=== PATIENT | female | born 1965 | race Caucasian/White ===

== ENCOUNTER → 2017-01-14 18:16 | Outpatient (CLI) | payer MEDICAID ==
[~2017-01-14 18:16] MED LIST: AMITRIPTYLINE100 MG PO; BACTRIM 400-801 TAB PO; CATAPRES0.1 MG PO; FLORAJEN3 CAPS460 MG PO; GEMFIBROZIL600 MG PO; KLONOPIN1 MG PO; LEVAQUIN750 MG PO; NAPROSYN500 MG PO; NICODERM C1 PATCH .1 TRANSDERM; NORVASC10 MG PO; PREDNISONE10 MG PO; PREDNISONE20 MG PO; PROAIR HFA8.5 GM INH; SINGULAIR10 MG PO; TESSALON PERLE100 MG PO; ZANTAC150 MG PO
== END | disposition home or self-care (01) ==
LOC: D.MAMMO 13:30
DX: Z12.31 Encounter for screening mammogram for malignant neoplasm of breast (principal)

== ENCOUNTER → 2017-03-25 11:48 | Outpatient (CLI) | payer MEDICAID ==
[2017-03-25 12:15] LABS: BASOPHILS 0.4 % (0-2); HEMATOCRIT 47.8 % (36.0-48.0); HEMOGLOBIN 16.1 g/dL (12-16); IMMATURE GRANULOCYTES 0.2 % (0-5); LYMPHOCYTES 21.7 % (15-50); MCH 33.5 pg (26.0-34.0); MCHC 33.7 g/dL (31.0-37.0); MCV 99.4 fL (80.0-100.0); MEAN PLATELET VOLUME 8.8 fL (7.4-10.4); MONOCYTES 4.8 % (2-11); NEUTROPHILS 71.9 % (40-80); PLATELET COUNT 239 10x3/uL (130-400); RBC 4.81 10x6/uL (4.00-5.40); RDW 13.2 % (11.5-14.5); WBC 9.8 10x3/uL (4.8-10.8)
[2017-03-25 12:28] LABS: ANION GAP 10.7 mmol/L (8-16); CALCIUM 9.8 mg/dL (8.5-10.1); CARBON DIOXIDE 30.4 mmol/L (21.0-32.0); CREATININE - SERUM 0.9 mg/dL (0.6-1.3); POTASSIUM - SERUM 4.1 mmol/L (3.5-5.1)
== END | disposition home or self-care (01) ==
LOC: D.LAB 11:48
PROVIDERS: Family Medicine
DX: Z00.00 Encounter for general adult medical examination without abnormal findings (principal)

== ENCOUNTER 2017-03-26 01:38 | Emergency (ER) | payer MEDICAID | END 2017-03-26 03:05 | disposition home or self-care (01) | LOC: D.ER 01:38 | DX: I10 Essential (primary) hypertension (principal); R51 Headache; J42 Unspecified chronic bronchitis; F32.9 Major depressive disorder, single episode, unspecified; B00.9 Herpesviral infection, unspecified; E78.5 Hyperlipidemia, unspecified ==

== ENCOUNTER 2017-05-12 22:45 | Emergency (ER) | payer MEDICAID ==
[2017-05-12 23:38] LABS: BASOPHILS 0.4 % (0-2); EOSINOPHILS 1.9 % (0-7); HEMATOCRIT 46.8 % (36.0-48.0); IMMATURE GRANULOCYTES 0.1 % (0-5); MCH 34.3 pg (26.0-34.0); MCHC 34.2 g/dL (31.0-37.0); MCV 100.2 fL (80.0-100.0); MEAN PLATELET VOLUME 9.2 fL (7.4-10.4); MONOCYTES 9.3 % (2-11); NEUTROPHILS 52.3 % (40-80); PLATELET COUNT 237 10x3/uL (130-400); RBC 4.67 10x6/uL (4.00-5.40); RDW 14.5 % (11.5-14.5); WBC 7.9 10x3/uL (4.8-10.8)
[2017-05-12 23:44] LABS: APPEARANCE HAZY (CLEAR); BILIRUBIN NEGATIVE (NEGATIVE); COLOR YELLOW (YELLOW); GLUCOSE NEGATIVE (NEGATIVE); KETONE NEGATIVE (NEGATIVE); LEUKOCYTE ESTERASE 1+ (NEGATIVE); NITRITE POSITIVE (NEGATIVE); PROTEIN NEGATIVE (NEGATIVE); SPECIFIC GRAVITY 1.015 (1.005-1.020); UROBILINOGEN NORMAL (NORMAL)
[2017-05-12 23:45] LABS: BACTERIA MANY /hpf (NONE SEEN); EPITHELIAL CELLS 0-5 /hpf (0-5); RED CELLS - URINE 0-5 /hpf (0-5)
[2017-05-12 23:53] LABS: ALBUMIN 3.8 g/dL (3.4-5.0); ALKALINE PHOSPHATASE 100 U/L (46-116); ALT (SGPT) 29 U/L (10-68); BILIRUBIN - TOTAL 0.39 mg/dL (0.2-1.3); CALC OSMOLALITY 283 mosm/kg (275-300); CALCIUM 9.7 mg/dL (8.5-10.1); CHLORIDE - SERUM 103 mmol/L (98-107); GLUCOSE 93 mg/dL (74-106); POTASSIUM - SERUM 3.9 mmol/L (3.5-5.1); PROTEIN - SERUM 7.4 g/dL (6.4-8.2); SODIUM 142 mmol/L (136-145); UREA NITROGEN 15 mg/dL (7-18); eGFR NON AFRICAN AMERICAN 61 mL/min (90-120)
[2017-05-12 23:57] LABS: TROPONIN-I < 0.017 ng/mL (0.000-0.060)
== END 2017-05-13 02:46 | disposition home or self-care (01) ==
LOC: D.ER 22:45
PROVIDERS: Emergency Medicine
DX: N20.0 Calculus of kidney (principal); N10 Acute pyelonephritis; J42 Unspecified chronic bronchitis; I10 Essential (primary) hypertension; E78.5 Hyperlipidemia, unspecified; F17.200 Nicotine dependence, unspecified, uncomplicated

== ENCOUNTER 2017-06-09 11:00 | Emergency (ER) | payer MEDICAID ==
[2017-06-09 12:30] LABS: BASOPHILS 0.4 % (0-2); EOSINOPHILS 1.9 % (0-7); HEMATOCRIT 49.3 % (36.0-48.0); HEMOGLOBIN 16.8 g/dL (12-16); IMMATURE GRANULOCYTES 0.3 % (0-5); LYMPHOCYTES 30.2 % (15-50); MCH 34.6 pg (26.0-34.0); MCHC 34.1 g/dL (31.0-37.0); MCV 101.6 fL (80.0-100.0); MEAN PLATELET VOLUME 9.8 fL (7.4-10.4); MONOCYTES 6.8 % (2-11); NEUTROPHILS 60.4 % (40-80); PLATELET COUNT 259 10x3/uL (130-400); RBC 4.85 10x6/uL (4.00-5.40); RDW 13.5 % (11.5-14.5); WBC 7.9 10x3/uL (4.8-10.8)
[2017-06-09 12:46] LABS: ALBUMIN 3.9 g/dL (3.4-5.0); ALKALINE PHOSPHATASE 96 U/L (46-116); ALT (SGPT) 14 U/L (10-68); BILIRUBIN - TOTAL 0.62 mg/dL (0.2-1.3); CALC OSMOLALITY 281 mosm/kg (275-300); CALCIUM 9.2 mg/dL (8.5-10.1); CARBON DIOXIDE 28.1 mmol/L (21.0-32.0); CHLORIDE - SERUM 103 mmol/L (98-107); CREATININE - SERUM 0.8 mg/dL (0.6-1.3); GLUCOSE 98 mg/dL (74-106); POTASSIUM - SERUM 4.3 mmol/L (3.5-5.1); PROTEIN - SERUM 7.3 g/dL (6.4-8.2); SODIUM 141 mmol/L (136-145); UREA NITROGEN 15 mg/dL (7-18); eGFR NON AFRICAN AMERICAN 79 mL/min (90-120)
[2017-06-09 14:46] LABS: APPEARANCE HAZY (CLEAR); BILIRUBIN NEGATIVE (NEGATIVE); COLOR YELLOW (YELLOW); GLUCOSE NEGATIVE (NEGATIVE); KETONE NEGATIVE (NEGATIVE); LEUKOCYTE ESTERASE NEGATIVE (NEGATIVE); NITRITE NEGATIVE (NEGATIVE); PROTEIN NEGATIVE (NEGATIVE); SPECIFIC GRAVITY 1.015 (1.005-1.020); UROBILINOGEN NORMAL (NORMAL)
== END 2017-06-09 17:19 | disposition home or self-care (01) ==
LOC: D.ER 11:00
PROVIDERS: Emergency Medicine
DX: E86.0 Dehydration (principal); R00.1 Bradycardia, unspecified; N20.0 Calculus of kidney; I10 Essential (primary) hypertension

== ENCOUNTER 2017-06-23 06:25 | Day surgery (SDC) | payer MEDICAID ==
[2017-06-19 11:40] LABS: HEMATOCRIT 43.9 % (36.0-48.0); HEMOGLOBIN 15.1 g/dL (12-16); MCH 34.5 pg (26.0-34.0); MCHC 34.4 g/dL (31.0-37.0); MCV 100.2 fL (80.0-100.0); MEAN PLATELET VOLUME 9.5 fL (7.4-10.4); RBC 4.38 10x6/uL (4.00-5.40); RDW 13.2 % (11.5-14.5); WBC 8.6 10x3/uL (4.8-10.8)
[~2017-06-23] VITALS: Ht 165.1 cm; Wt 58.5 kg
[~2017-06-23 06:25] MED LIST changes: +BENICAR HCT 20-1 TA1 PO; +HYDRALAZINE HCL50 MG PO; +METOPROLOL TART50 MG PO; +PAXIL20 MG PO; +PREVACID30 MG PO; +VALTREX1000 MG PO
[2017-06-23 06:51] VITALS: BP 131/79; Ht 165.1 cm; Wt 58.5 kg
--- NOTE | 2017-06-24 11:12 | OP ---
PATIENT NAME: ABI VIDES MEDICAL RECORD: [id number] :61 LOCATION:D.OPS ADMISSION DATE: SURGEON: TORRES MERCHANT MD DATE OF OPERATION: 06/23/2017 SURGEON: Torres Merchant MD. ANESTHESIA: MAC by Dr. Colten Mcfarlane. PREOPERATIVE DIAGNOSIS: Interstitial cystitis. FINDINGS: Urethral stricture, single ureteral orifices, inflammation of the dome of the bladder with glomerulations. PROCEDURES: Urethral dilation to 30-Iraqi, cystoscopy, intravesical Rimso 50 installation. BLOOD LOSS: None. CLINICAL HISTORY: This is a 52-year-old female, who has had a previous pubovaginal sling. She has urinary tract infection symptoms all the time. There may have been one positive culture at one point, but latest urine cultures have been no growth. She also has diffuse pelvic and vaginal pain. On examination, she had left lower quadrant and right lower quadrant suprapubic tenderness as well as left costovertebral angle tenderness. On vaginal examination, there was tenderness in the trigonal region of the bladder. Her symptoms are highly suggestive of interstitial cystitis and she comes now to have cystoscopy. If we see bladder inflammation, we will treat with the anti-inflammatory Rimso. SHE IS ALLERGIC TO PENICILLIN. She was given Levaquin 250 mg IV rest room matron to the OR. DESCRIPTION OF PROCEDURE: The patient was given IV sedation. She was placed in the dorsal lithotomy position and prepped and draped. A 17-Iraqi cystoscope could not enter into the urethra as the urethra was quite stenotic. We used sounds to dilate the urethra successively until we reached 30-Iraqi in size. The scope was then able to enter through without any resistance. No erosion of the graft into the urethra was noted. The bladder shows no graft erosion. There are no tumors in the bladder. There are single ureteral orifices on each side. There was diffuse inflammation, but most of it was concentrated in the dome of the bladder where there was especially prominent red patch with glomerulations, which was petechial bleeding with bladder dilation. The bladder was emptied through the scope and then the scope was removed. A 16-Iraqi red rubber catheter was then inserted into the bladder and 50 mL of the Rimso solution was placed into the bladder using a syringe. The catheter was then removed, leaving the solution in the bladder. The patient will hold the medication in the bladder for 15 minutes and then she will void it out. I will see her in followup next week to have her second treatment performed. TRANSINT:[id number] Voice Confirmation ID: [id number] DOCUMENT ID: [id number] OPERATIVE REPORT [id number] ABI VIDES ROBERT S MD at 1112 CC: [id number] DICTATION DATE: 06/23/17 0843 ULTRASONOGRAPHER: 06/23/17 1246 [facility] 06/23/[address] [id number]
== END 2017-06-23 09:44 | disposition home or self-care (01) ==
LOC: D.OPS 06:25 → D.PAN 08:00 → D.OPS 08:00
PROVIDERS: Anesthesiology
DX: N30.10 Interstitial cystitis (chronic) without hematuria (principal); N35.9 Urethral stricture, unspecified; Z88.0 Allergy status to penicillin; Z01.812 Encounter for preprocedural laboratory examination

== ENCOUNTER → 2017-07-08 18:20 | Outpatient (CLI) | payer MEDICAID ==
[2017-06-23 06:51] VITALS: BMI 21.5
[2017-07-08 20:29] LABS: APPEARANCE CLEAR (CLEAR); BILIRUBIN NEGATIVE (NEGATIVE); COLOR YELLOW (YELLOW); GLUCOSE NEGATIVE (NEGATIVE); KETONE NEGATIVE (NEGATIVE); LEUKOCYTE ESTERASE NEGATIVE (NEGATIVE); NITRITE NEGATIVE (NEGATIVE); PROTEIN NEGATIVE (NEGATIVE); SPECIFIC GRAVITY 1.015 (1.005-1.020); UROBILINOGEN NORMAL (NORMAL)
== END | disposition home or self-care (01) ==
LOC: D.LABREF 18:20
PROVIDERS: Urology
DX: N39.0 Urinary tract infection, site not specified (principal)

== ENCOUNTER → 2017-07-30 19:30 | Outpatient (CLI) | payer MEDICAID ==
[2017-06-23 06:51] VITALS: BMI 21.5
[2017-07-30 20:52] LABS: APPEARANCE CLEAR (CLEAR); BILIRUBIN NEGATIVE (NEGATIVE); COLOR GREEN (YELLOW); GLUCOSE NEGATIVE (NEGATIVE); KETONE NEGATIVE (NEGATIVE); LEUKOCYTE ESTERASE TRACE (NEGATIVE); NITRITE NEGATIVE (NEGATIVE); PROTEIN NEGATIVE (NEGATIVE); SPECIFIC GRAVITY 1.015 (1.005-1.020); UROBILINOGEN NORMAL (NORMAL); WHITE CELLS - URINE 0-5 /hpf (0-5)
[2017-07-30 20:53] LABS: BACTERIA FEW /hpf (NONE SEEN); EPITHELIAL CELLS 0-5 /hpf (0-5); RED CELLS - URINE OCC /hpf (0-5)
== END | disposition home or self-care (01) ==
LOC: D.LABREF 19:30
PROVIDERS: Internal Medicine
DX: N39.0 Urinary tract infection, site not specified (principal)

== ENCOUNTER 2017-11-27 20:05 | Emergency (ER) | payer MEDICAID ==
[2017-06-23 06:51] VITALS: BMI 21.5
== END 2017-11-27 21:55 | disposition home or self-care (01) ==
LOC: D.ER 20:05
DX: G89.18 Other acute postprocedural pain (principal); M79.675 Pain in left toe(s); I10 Essential (primary) hypertension

== ENCOUNTER → 2017-12-12 07:38 | Outpatient (CLI) | payer MEDICAID ==
[2017-06-23 06:51] VITALS: BMI 21.5
[2017-12-14 13:08] LABS: IMMUNOGLOBULIN A 240 mg/dL (87-352); IMMUNOGLOBULIN G 825 mg/dL (700-1600)
[2017-12-19 20:09] LABS: IMMUNOGLOBULIN E 847 IU/mL (0-100)
== END | disposition home or self-care (01) ==
LOC: D.RT 07:38
PROVIDERS: Internal Medicine Pulmonary Disease
DX: J45.909 Unspecified asthma, uncomplicated (principal)

== ENCOUNTER → 2018-01-19 17:49 | Outpatient (CLI) | payer MEDICAID ==
[2017-06-23 06:51] VITALS: BMI 21.5
== END | disposition home or self-care (01) ==
LOC: D.MAMMO 15:30
DX: Z12.31 Encounter for screening mammogram for malignant neoplasm of breast (principal)

== ENCOUNTER 2019-06-21 03:00 | Emergency (ER) | payer MEDICAID ==
[~2019-06-21] VITALS: Ht 165.1 cm; Wt 58.2 kg
[2019-06-21 03:01] VITALS: Ht 165.1 cm; Wt 58.2 kg
[2019-06-21] MEDS ORDERED: NORVASC10 MG PO (03:03)
[2019-06-21] MEDS ORDERED: CATAPRES0.1 MG PO (03:03)
[2019-06-21] MEDS ORDERED: ADDERALL 20 MG20 M1 PO (03:04)
[2019-06-21] MEDS ORDERED: VALIUM5 MG PO (03:04)
[2019-06-21 03:46] LABS: HEMATOCRIT 46.3 % (36.0-48.0); HEMOGLOBIN 16.8 g/dL (12-16); MCH 32.6 pg (26.0-34.0); MCHC 36.3 g/dL (31.0-37.0); MCV 89.7 fL (80.0-100.0); MEAN PLATELET VOLUME 8.8 fL (7.4-10.4); PLATELET COUNT 286 10x3/uL (130-400); RBC 5.16 10x6/uL (4.00-5.40); RDW 13.2 % (11.5-14.5); WBC 26.2 10x3/uL (4.8-10.8)
[2019-06-21 03:53] LABS: ALBUMIN 3.8 g/dL (3.4-5.0); ANION GAP 11.6 mmol/L (8-16); BILIRUBIN - TOTAL 0.5 mg/dL (0.2-1.3); CALCIUM 8.8 mg/dL (8.5-10.1); CARBON DIOXIDE 27.4 mmol/L (21.0-32.0); CREATININE - SERUM 0.9 mg/dL (0.6-1.3); PROTEIN - SERUM 7.6 g/dL (6.4-8.2)
[2019-06-21 04:03] LABS: APPEARANCE CLOUDY (CLEAR); COLOR ORANGE (YELLOW)
[2019-06-21 04:03] LABS: BASOPHILS 1 % (0-2); LYMPHOCYTES 3 % (15-50); MONOCYTES 5 % (2-11); NEUTROPHILS 84 % (40-80); PLATELET ESTIMATE NORMAL
[2019-06-21 04:04] LABS: BILIRUBIN NEGATIVE (NEGATIVE); GLUCOSE NEGATIVE (NEGATIVE); KETONE NEGATIVE (NEGATIVE); PROTEIN 1+ mg/dL (NEGATIVE); UROBILINOGEN NORMAL (NORMAL)
[2019-06-21 04:05] LABS: NITRITE POSITIVE (NEGATIVE)
[2019-06-21 04:06] LABS: BACTERIA MANY /hpf (NONE SEEN); EPITHELIAL CELLS 0-5 /hpf (0-5); HYALINE CAST 0-5 /lpf (NONE SEEN); MUCUS <1+ /lpf (NONE SEEN)
[2019-06-21 05:55] VITALS: BP 138/88
== END 2019-06-21 05:56 | disposition other institution (70) ==
LOC: D.ER 03:00
PROVIDERS: Family Medicine
DX: N20.1 Calculus of ureter (principal); N12 Tubulo-interstitial nephritis, not specified as acute or chronic

== ENCOUNTER 2019-07-06 13:18 | Emergency (ER) | payer MEDICAID ==
[~2019-07-06] VITALS: Ht 165.1 cm; Wt 56.8 kg
[~2019-07-06 13:18] MED LIST changes: +ADDERALL 20 MG20 M1 PO; +VALIUM5 MG PO
[2019-07-06 13:54] VITALS: Ht 165.1 cm; Wt 56.8 kg
[2019-07-06 14:24] LABS: BASOPHILS 0.6 % (0-2); EOSINOPHILS 1.4 % (0-7); HEMOGLOBIN 16.3 g/dL (12-16); IMMATURE GRANULOCYTES 0.1 % (0-5); LYMPHOCYTES 27.3 % (15-50); MCHC 34.7 g/dL (31.0-37.0); MCV 92.3 fL (80.0-100.0); MEAN PLATELET VOLUME 8.8 fL (7.4-10.4); NEUTROPHILS 64.6 % (40-80); RBC 5.09 10x6/uL (4.00-5.40); RDW 14.4 % (11.5-14.5); WBC 8.5 10x3/uL (4.8-10.8)
[2019-07-06 14:28] LABS: PLATELET COUNT 368 10x3/uL (130-400)
[2019-07-06 14:36] LABS: ALBUMIN 3.8 g/dL (3.4-5.0); ALKALINE PHOSPHATASE 113 U/L (46-116); ALT (SGPT) 15 U/L (10-68); BILIRUBIN - TOTAL 0.37 mg/dL (0.2-1.3); CALC OSMOLALITY 285 mosm/kg (275-300); CALCIUM 10.8 mg/dL (8.5-10.1); CARBON DIOXIDE 28.9 mmol/L (21.0-32.0); CHLORIDE - SERUM 105 mmol/L (98-107); CREATININE - SERUM 0.8 mg/dL (0.6-1.3); GLUCOSE 91 mg/dL (74-106); POTASSIUM - SERUM 4.5 mmol/L (3.5-5.1); PROTEIN - SERUM 8.1 g/dL (6.4-8.2); SODIUM 144 mmol/L (136-145); UREA NITROGEN 10 mg/dL (7-18); eGFR NON AFRICAN AMERICAN 78 mL/min (90-120)
[2019-07-06 14:48] LABS: CKMB 0.4 U/L (0.0-3.6); CREATINE KINASE 47 UL (21-215)
[2019-07-06 14:51] LABS: TROPONIN-I < 0.017 ng/mL (0.000-0.060)
[2019-07-06 14:52] LABS: APPEARANCE CLEAR (CLEAR); BILIRUBIN NEGATIVE (NEGATIVE); COLOR YELLOW (YELLOW); GLUCOSE NEGATIVE (NEGATIVE); KETONE NEGATIVE (NEGATIVE); NITRITE NEGATIVE (NEGATIVE); PROTEIN 1+ mg/dL (NEGATIVE); SPECIFIC GRAVITY 1.015 (1.005-1.020); UROBILINOGEN NORMAL (NORMAL)
[2019-07-06 14:53] LABS: BACTERIA FEW /hpf (NONE SEEN); EPITHELIAL CELLS 0-5 /hpf (0-5); MUCUS >1+ /lpf (NONE SEEN); RED CELLS - URINE 0-5 /hpf (0-5); WHITE CELLS - URINE 0-5 /hpf (0-5)
[2019-07-06 19:06] VITALS: BP 148/93
== END 2019-07-06 18:55 | disposition home or self-care (01) ==
LOC: D.ER 13:18
PROVIDERS: Family Medicine
DX: T50.905A Adverse effect of unspecified drugs, medicaments and biological substances, initial encounter (principal); R55 Syncope and collapse; R53.1 Weakness